=== PATIENT | male | born 1975 | race African-American/Black ===

== ENCOUNTER → 2018-05-23 | Day surgery (SDC) | payer OTHER ==
[~2018-05-23] MED LIST: BUPIVACAINE HCL 0.5 % INJ/PF 30 ML SDV ONE; LIDOCAINE 1% INJ-PF (10 MG/ML) 30 ML SDV ONE; METHYLPREDNISOLONE ACETATE INJ 40 MG/1 ML ML ONE
--- NOTE | 2018-05-23 15:04 | RADIOLOGY REPORT (SQ) ---
EXAM DESCRIPTION: INJECT/ASPIR HIP/SHLDR/KNEE; FLUORO/NEEDLE PLACEMENT COMPLETED DATE/TIME: 05/23/2018 2:25 pm; 05/23/2018 2:32 pm; 05/23/2018 2:33 pm REASON FOR STUDY: PAIN IN RIGHT HIP (M25.551); PAIN IN LEFT HIP (M25.552) M25.551 PAIN IN RIGHT HIP M25.552 PAIN IN LEFT HIP COMPARISON: None. FLUOROSCOPY TIME: 28 seconds 2 images saved to PACS. LIMITATIONS: None. PROCEDURE: SITE OF INJECTION: Right hip followed by left hip. LOCALIZING CONTRAST TYPE AND DOSE: Fluoroscopy. MEDICATION TYPE AND DOSE: 5 cc 0.5% bupivacaine per joint. 40 mg of Depo-Medrol per joint. Using local anesthesia and sterile technique with fluoroscopic guidance, the needle was advanced into the right hip joint. Iodinated contrast (Omnipaque 300) was injected to verify intraarticular placem ent. This was followed by therapeutic injection of the indicated medications. The needle was remove d. The patient was re-prepped and draped and attention was focused on the left hip. Using local ane sthesia and sterile technique with fluoroscopic guidance, the needle was advanced into the left hip j oint. Small amount of contrast was injected to confirm intra-articular location. This was followed by therapeutic injection of the indicated medications. The needle was removed. There were no immedi ate complications. Preprocedure pain level: Left hip: 10/10. Right hip: 8/10 Postprocedure pain level: Left hip: 6/10. Right hip: 8/10 IMPRESSION: THERAPEUTIC INJECTION OF BOTH HIP JOINTS ABOVE. COMMENT: Patient medication list reviewed: Yes- Quality ID# [id number]:Eligible professional attests to doc umenting in the medical record they obtained, updated, or reviewed the patient's current medications. . Quality ID 145: Final reports for procedures using fluoroscopy that document radiation exposure alina amor, or exposure time and number of fluorographic images (if radiation exposure indices are not avail able) TECHNICAL DOCUMENTATION: JOB ID: [id number] [employer]- All Rights Reserved Reading location - IP/workstation name: [facility]
--- NOTE | 2018-05-23 15:04 | RADIOLOGY REPORT (SQ) ---
EXAM DESCRIPTION: INJECT/ASPIR HIP/SHLDR/KNEE; FLUORO/NEEDLE PLACEMENT COMPLETED DATE/TIME: 05/23/2018 2:25 pm; 05/23/2018 2:32 pm; 05/23/2018 2:33 pm REASON FOR STUDY: PAIN IN RIGHT HIP (M25.551); PAIN IN LEFT HIP (M25.552) M25.551 PAIN IN RIGHT HIP M25.552 PAIN IN LEFT HIP COMPARISON: None. FLUOROSCOPY TIME: 28 seconds 2 images saved to PACS. LIMITATIONS: None. PROCEDURE: SITE OF INJECTION: Right hip followed by left hip. LOCALIZING CONTRAST TYPE AND DOSE: Fluoroscopy. MEDICATION TYPE AND DOSE: 5 cc 0.5% bupivacaine per joint. 40 mg of Depo-Medrol per joint. Using local anesthesia and sterile technique with fluoroscopic guidance, the needle was advanced into the right hip joint. Iodinated contrast (Omnipaque 300) was injected to verify intraarticular placem ent. This was followed by therapeutic injection of the indicated medications. The needle was remove d. The patient was re-prepped and draped and attention was focused on the left hip. Using local ane sthesia and sterile technique with fluoroscopic guidance, the needle was advanced into the left hip j oint. Small amount of contrast was injected to confirm intra-articular location. This was followed by therapeutic injection of the indicated medications. The needle was removed. There were no immedi ate complications. Preprocedure pain level: Left hip: 10/10. Right hip: 8/10 Postprocedure pain level: Left hip: 6/10. Right hip: 8/10 IMPRESSION: THERAPEUTIC INJECTION OF BOTH HIP JOINTS ABOVE. COMMENT: Patient medication list reviewed: Yes- Quality ID# [id number]:Eligible professional attests to doc umenting in the medical record they obtained, updated, or reviewed the patient's current medications. . Quality ID 145: Final reports for procedures using fluoroscopy that document radiation exposure alina amor, or exposure time and number of fluorographic images (if radiation exposure indices are not avail able) TECHNICAL DOCUMENTATION: JOB ID: [id number] [employer]- All Rights Reserved Reading location - IP/workstation name: [facility]
--- NOTE | 2018-05-23 15:04 | RADIOLOGY REPORT (SQ) ---
EXAM DESCRIPTION: INJECT/ASPIR HIP/SHLDR/KNEE; FLUORO/NEEDLE PLACEMENT COMPLETED DATE/TIME: 05/23/2018 2:25 pm; 05/23/2018 2:32 pm; 05/23/2018 2:33 pm REASON FOR STUDY: PAIN IN RIGHT HIP (M25.551); PAIN IN LEFT HIP (M25.552) M25.551 PAIN IN RIGHT HIP M25.552 PAIN IN LEFT HIP COMPARISON: None. FLUOROSCOPY TIME: 28 seconds 2 images saved to PACS. LIMITATIONS: None. PROCEDURE: SITE OF INJECTION: Right hip followed by left hip. LOCALIZING CONTRAST TYPE AND DOSE: Fluoroscopy. MEDICATION TYPE AND DOSE: 5 cc 0.5% bupivacaine per joint. 40 mg of Depo-Medrol per joint. Using local anesthesia and sterile technique with fluoroscopic guidance, the needle was advanced into the right hip joint. Iodinated contrast (Omnipaque 300) was injected to verify intraarticular placem ent. This was followed by therapeutic injection of the indicated medications. The needle was remove d. The patient was re-prepped and draped and attention was focused on the left hip. Using local ane sthesia and sterile technique with fluoroscopic guidance, the needle was advanced into the left hip j oint. Small amount of contrast was injected to confirm intra-articular location. This was followed by therapeutic injection of the indicated medications. The needle was removed. There were no immedi ate complications. Preprocedure pain level: Left hip: 10/10. Right hip: 8/10 Postprocedure pain level: Left hip: 6/10. Right hip: 8/10 IMPRESSION: THERAPEUTIC INJECTION OF BOTH HIP JOINTS ABOVE. COMMENT: Patient medication list reviewed: Yes- Quality ID# [id number]:Eligible professional attests to doc umenting in the medical record they obtained, updated, or reviewed the patient's current medications. . Quality ID 145: Final reports for procedures using fluoroscopy that document radiation exposure alnia amor, or exposure time and number of fluorographic images (if radiation exposure indices are not avail able) TECHNICAL DOCUMENTATION: JOB ID: [id number] [employer]- All Rights Reserved Reading location - IP/workstation name: [facility]
--- NOTE | 2018-05-23 15:04 | RADIOLOGY REPORT (SQ) ---
EXAM DESCRIPTION: INJECT/ASPIR HIP/SHLDR/KNEE; FLUORO/NEEDLE PLACEMENT COMPLETED DATE/TIME: 05/23/2018 2:25 pm; 05/23/2018 2:32 pm; 05/23/2018 2:33 pm REASON FOR STUDY: PAIN IN RIGHT HIP (M25.551); PAIN IN LEFT HIP (M25.552) M25.551 PAIN IN RIGHT HIP M25.552 PAIN IN LEFT HIP COMPARISON: None. FLUOROSCOPY TIME: 28 seconds 2 images saved to PACS. LIMITATIONS: None. PROCEDURE: SITE OF INJECTION: Right hip followed by left hip. LOCALIZING CONTRAST TYPE AND DOSE: Fluoroscopy. MEDICATION TYPE AND DOSE: 5 cc 0.5% bupivacaine per joint. 40 mg of Depo-Medrol per joint. Using local anesthesia and sterile technique with fluoroscopic guidance, the needle was advanced into the right hip joint. Iodinated contrast (Omnipaque 300) was injected to verify intraarticular placem ent. This was followed by therapeutic injection of the indicated medications. The needle was remove d. The patient was re-prepped and draped and attention was focused on the left hip. Using local ane sthesia and sterile technique with fluoroscopic guidance, the needle was advanced into the left hip j oint. Small amount of contrast was injected to confirm intra-articular location. This was followed by therapeutic injection of the indicated medications. The needle was removed. There were no immedi ate complications. Preprocedure pain level: Left hip: 10/10. Right hip: 8/10 Postprocedure pain level: Left hip: 6/10. Right hip: 8/10 IMPRESSION: THERAPEUTIC INJECTION OF BOTH HIP JOINTS ABOVE. COMMENT: Patient medication list reviewed: Yes- Quality ID# [id number]:Eligible professional attests to doc umenting in the medical record they obtained, updated, or reviewed the patient's current medications. . Quality ID 145: Final reports for procedures using fluoroscopy that document radiation exposure alina amor, or exposure time and number of fluorographic images (if radiation exposure indices are not avail able) TECHNICAL DOCUMENTATION: JOB ID: [id number] [employer]- All Rights Reserved Reading location - IP/workstation name: [facility]
== END ==
LOC: RAD 12:35 → EDSTATUS 13:00
PROVIDERS: ATTEND Orthopaedic Surgery
DX: M25.551 Pain in right hip (principal); M25.552 Pain in left hip
CPT/HCPCS: 20610; 77002; J3490; J1020